=== PATIENT | male | born 1965 | race Two or more races ===

== ENCOUNTER 2023-03-23 09:45 | Emergency (ER) | payer OTHER ==
[~2023-03-23] VITALS: Ht 182.9 cm; Wt 98.9 kg
[2023-03-23] MEDS ORDERED: CRESTOR40 MG PO (10:06)
== END 2023-03-23 11:04 | disposition home or self-care (01) ==
LOC: ER 09:45
DX: S61.011A Laceration without foreign body of right thumb without damage to nail, initial encounter (principal); S60.221A Contusion of right hand, initial encounter; W45.8XXA Other foreign body or object entering through skin, initial encounter; Y93.89 Activity, other specified; Y92.89 Other specified places as the place of occurrence of the external cause; Y99.9 Unspecified external cause status